=== PATIENT | female | born 1980 | race African-American/Black ===

== ENCOUNTER 2017-12-31 21:58 | Emergency (ER) | payer OTHER, SELFPAY ==
[2017-12-31] MEDS ORDERED: Ketorolac Tromethamine 30 MG/ML VIAL ONE (22:36)
== END 2017-12-31 23:14 | disposition home or self-care (01) ==
LOC: ERS 21:58
DX: S39.012A Strain of muscle, fascia and tendon of lower back, initial encounter (principal); I10 Essential (primary) hypertension; Z79.899 Other long term (current) drug therapy; X58.XXXA Exposure to other specified factors, initial encounter
CPT/HCPCS: 96372; J1885

== ENCOUNTER 2018-01-15 09:48 | Emergency (ER) | payer SELFPAY ==
[2018-01-15] MEDS ORDERED: Bicillin LA 1.2 MILLION UNITS/2 ML SYRINGE ONE (11:23)
== END 2018-01-15 11:40 | disposition home or self-care (01) ==
LOC: ERS 09:48
DX: J02.0 Streptococcal pharyngitis (principal); I10 Essential (primary) hypertension; F41.9 Anxiety disorder, unspecified; F32.9 Major depressive disorder, single episode, unspecified; Z79.899 Other long term (current) drug therapy
CPT/HCPCS: 96372; J0561

== ENCOUNTER 2018-07-05 23:18 | Emergency (ER) | payer SELFPAY ==
[2018-07-06 00:18] LABS: #Basophils 0.1 thou/uL (0.0-0.2); #Eosinphils 0.2 thou/uL (0.0-0.7); #Lymphocytes 2.3 thou/uL (1.20-3.40); #Monocytes 0.5 thou/uL (0.11-0.59); #Neutrophils 3.8 thou/uL (1.40-6.50); %Basophils 1.4 % (0.0-1.0); %Eosinophils 2.3 % (0.0-10.0); %Lymphocytes 33.6 % (21.0-51.0); %Monocytes 7.7 % (0.0-10.0); Hemoglobin 12.4 g/dL (12.0-16.0); Mean Corpuscular HGB CONC 33.4 g/dL (32.0-36.0); Mean Corpuscular Hemoglobin 26.4 pg (27.0-31.0); Mean Corpuscular Volume 79.1 fL (78.0-98.0); Mean Platelet Volume 8.8 fL (7.4-10.4); Platelet Count 315 thou/uL (130-400); RBC Distribution Width 14.9 % (11.5-14.5); Red Blood Cell (RBC) Count 4.68 mill/uL (4.20-5.40)
[2018-07-06 00:38] LABS: ALT (SGPT) 13 U/L (8-55); AST (SGOT) 13 U/L (5-34); Alkaline Phosphatase 60 U/L (40-150); Anion Gap 14 mmol/L (10-20); BUN (Urea Nitrogen) 8 mg/dL (7.0-18.7); Bilirubin, Total 0.2 mg/dL (0.2-1.2); Calc. Creatinine Clearance 0 mL/min (70-130); Calcium 9.5 mg/dL (7.8-10.44); Carbon Dioxide 25 mmol/L (22-29); Chloride 103 mmol/L (98-107); Estimated GFR-MDRD Greater than 90; Globulin 3.4 g/dL (2.4-3.5); Glucose 130 mg/dL (70-105); Potassium 3.6 mmol/L (3.5-5.1); Protein, Total 7.4 g/dL (6.0-8.3); Sodium 138 mmol/L (136-145)
[2018-07-06] MEDS ORDERED: Proparacaine 0.5% Opth 15 ML BOT ONE (01:11)
--- NOTE | 2018-07-06 07:18 | CT ---
CT HEAD NONCONTRAST: Date: 07/06/18 INDICATION: Headache, visual changes. No prior comparison. FINDINGS: There is normal size of ventricular system. No acute intracranial hemorrhage, mass effect, midline s hift, or significant parenchymal abnormality identified. There is mild mucosal thickening of the para nasal sinuses. IMPRESSION: No acute intracranial hemorrhage or mass effect. POS: [facility]
== END 2018-07-06 01:29 | disposition home or self-care (01) ==
LOC: ERS 23:18
DX: H57.89 Other specified disorders of eye and adnexa (principal); I10 Essential (primary) hypertension; R73.9 Hyperglycemia, unspecified; F41.9 Anxiety disorder, unspecified; F32.9 Major depressive disorder, single episode, unspecified; Z79.899 Other long term (current) drug therapy
CPT/HCPCS: 36415; 70450; 80053; 85025; 93005

== ENCOUNTER 2018-10-01 05:21 | Emergency (ER) | payer SELFPAY | END 2018-10-01 05:53 | disposition home or self-care (01) | LOC: ERS 05:21 | DX: M25.561 Pain in right knee (principal); I10 Essential (primary) hypertension; E11.9 Type 2 diabetes mellitus without complications; F41.9 Anxiety disorder, unspecified; F32.9 Major depressive disorder, single episode, unspecified; Z79.899 Other long term (current) drug therapy; Z79.891 Long term (current) use of opiate analgesic | CPT/HCPCS: 99281 ==

== ENCOUNTER 2019-11-22 19:46 | Emergency (ER) | payer OTHER, SELFPAY | END 2019-11-22 20:35 | disposition home or self-care (01) | LOC: ERS 19:46 | DX: L01.00 Impetigo, unspecified (principal); I10 Essential (primary) hypertension; F41.9 Anxiety disorder, unspecified; F32.9 Major depressive disorder, single episode, unspecified; Z79.899 Other long term (current) drug therapy | CPT/HCPCS: 99282 ==